=== PATIENT | male | born 1965 | race African-American/Black ===

== ENCOUNTER 2024-09-30 09:38 | Outpatient (AMB) | payer OTHER, SELFPAY ==
[2024-09-30 09:50] VITALS: BP 140/100; PULSE 81; O2SAT 95; BMI 46.4
--- NOTE | 2024-09-30 09:50 | A.OFFVIS_ITS ---
Vital Signs 09/30/24 09:50 Height 5 ft 9 in Weight 314 lb 2.539 oz BMI 46.4 BP 140/100 H Blood Pressure Location Lt brachial Position Sitting Pulse 81 Pulse Source Pulse Oximeter Pulse Oximetry (%) 95 Oxygen Delivery Method Room Air Intake Visit Reasons: omar Intake Note: pt is here as a new patient for hx of sleep apnea, last sleep study 2011, has resmed 10 with [facility]. He does feel oxygen deprived in am at times, has had cpap treatment since 2011. Roller Stainer Required: No Allergies No Known Allergies Allergy (Verified 09/30/24 10:43) Medication List - Last Reconciled 09/30/24 by Shelby Gill MD atorvastatin 20 mg PO BEDTIME losartan 25 mg PO DAILY tadalafil 10 mg PO DAILY PRN Do you need a note to return to daycare/school/sports/work: No HPI HPI omar: Details: This 59 years old gentleman is being seen for the 1st time in relation to his longstanding obstructive sleep apnea. He gives history of being overweight throughout his adult life. Back in 2011 he presented with symptoms of frequent awakening at night, snoring, and also daytime sleepiness . His body weight at that time was 250 lb. He had polysomnogram study at [facility] the report of which is reviewed. He was found to have relatively severe obstructive sleep apnea and had CPAP t itration, which showed that he required a pressure of 12 cm. He was started on CPAP therapy with fullface mask and pressure of 12 cm. He was initially being followed by the sleep medicine service at [facility], but apparently a few years later then he has continue to use the CPAP, but not being followed by any sleep physician. He had his CPAP device, changed about 3-4 years ago, to a new model, but the CPAP pressure was still kept the same, 12 cm. He claims that he still uses the CPAP regularly but wakes up in the morning feeling somewhat tired, and as if he lacks O2. He has had no regular compliance monitoring. He has come to us for CPAP management. He is hoping that he could use a nasal interface instead of fullface mask. However he also states that he is a mouth breather . In the last 2 about 12 years he has gained almost 100 lb of weight, compared to 250 in 2012 current weight is 314. He has not . 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 He remains very sedentary. He is being treated for hypertension and hyperlipidemia , and erectile dysfunction. He claims that he is nonsmoker, and uses marijuana only once in a while. He does use moderate amount of alcohol almost on a daily basis. [facility] Medical History (Updated 09/30/24 @ 13:35 by Shelby Gill MD) OMAR on CPAP Morbid exogenous obesity Social History Patient Tobacco Use Status: Never used Tobacco Review of Systems Const All systems reviewed & are unremarkable except as noted in HPI and below Denies snoring (When he is wearing the CPAP) Eyes Reports no additional complaints ENT Reports no additional complaints Card Denies chest pain, Denies irregular heart rhythm, Denies leg edema and Denies dyspnea on exertion Resp Reports no additional complaints, Denies dyspnea on exertion, Denies snoring (When he is wearing the CPAP) and Denies wheezing GI Reports no additional complaints Reports erectile dysfunction Musc Reports no additional complaints Skin/Breast Reports system reviewed and no additional complaints, except as documented Neuro Reports no additional complaints Psych Reports no additional complaints Endo Reports no additional complaints Kishor/Lymph Reports no additional complaints Aller/Immun Denies wheezing Physical Exam Vital Signs: Last Vital Signs Pulse 81 09/30/24 09:50 BP 140/100 H 09/30/24 09:50 Pulse Ox 95 09/30/24 09:50 Oxygen Delivery Method Room Air 09/30/24 09:50 BMI result Body Mass Index 46.4 This gentleman is grossly obese has a large round face, with a large neck. Const General: healthy appearing (Except for being overweight), comfortable, no acute distress, alert and awake Orientation/consciousness: patient oriented x3 HEENT Head: Yes normal to inspection General nose exam: No nasal polyps present and No nasal discharge present Face and sinus: Yes sinuses nontender Mouth: oropharynx abnormals (Oropharynx is very crowded, Mallampati scale 4) Throat: Yes posterior oropharynx normal Eyes General: appearance normal, both eyes and all related structures Neck Neck: Yes normal visual inspection, Yes no lymphadenopathy, Yes trachea midline, Yes no JVD and Yes other (Neck 18-1/2 inch) Thyroid: Thyroid normal Resp Effort & Inspection: normal respiratory effort Auscultation: clear to auscultation bilaterally, no crackles and no wheezes Cardio Palpation: normal PMI Rate: regular rate Rhythm: regular rhythm Heart sounds: no gallops and no murmurs Peripheral pulses: Peripheral pulses 2+ throughout GI Palpation (GI): Soft to palpation, nontender, No hepatosplenomegaly present and no masses Auscultation: normal bowel sounds Back/Spine/Pelvis Thoracic/Lumbar Spine: thoracic and lumbar spine normal to inspection Skin General skin exam: no rashes or lesions noted Neuro General: patient oriented x3 and no focal motor deficits Cranial nerves: Yes CN's II-XII intact bilaterally Extrem General: Yes normal to inspection, Yes no clubbing, cyanosis or edema and Yes no calf tenderness Psych Appearance: grossly normal and well kempt Speech and movement: Normal speech and movement present Results Reviewed Results Reviewed: COMPLIANCE REPORT IS OBTAINED FROM THE DME SUPPLIER HIS COMPLIANCE IS 100% AVERAGE USE IT PER NIGHT 6 HOURS 34 MINUTES. HE IS ON AUTO PAP MODE AND USING PRESSURE MAINLY 12-13 CM. THERE IS MODERATE AMOUNT OF AIR LEAK MAXIMUM 58 L/MINUTE. RESIDUAL AHI 1.7 Assessment & Plan Assessment & Plan (1) Morbid exogenous obesity: Comment: THIS GENTLEMAN HAS CHRONIC MORBID OBESITY. HE HAS GAINED LOT OF WEIGHT, PROBABLY DUE TO SEDENTARY LIFESTYLE. Code(s): E66.01 - Morbid (severe) obesity due to excess calories Category: Medical Plan: I TALKED TO HIM ABOUT THE WEIGHT. ENCOURAGED HIM TO JOIN A WEIGHT MANAGEMENT PROGRAM. HE SHOULD SEE HIS PRIMARY CARE PHYSICIAN REGULARLY. HE SHOULD HAVE COMPLETE CHEMISTRY CHECKUP . DIET SOUZA HE COULD SEE A REGULATORY AFFAIRS ANALYST, AND FOR THE TIME BEING I ADVISED HIM TO CUT OUT THE CARBOHYDRATES AND TAKE MORE OF VEGETABLES AND SALADS. (2) OMAR on CPAP: Comment: PATIENT HAS HISTORY OF OBSTRUCTIVE SLEEP APNEA DIAGNOSED IN 2012, HE HAS BEEN ON CPAP SINCE THEN. HE IS NOT BEING FOLLOWED BY ANY SLEEP SPECIALIST. HE IS NOT HAPPY WITH HIS CURRENT MASK, WHICH. IS AT LARGE FULLFACE HE WANTS TO TRY A NASAL MASK, HOWEVER I AM AFRAID THAT HE IS GOING TO HAVE LOT OF AIR LEAK THROUGH THE MOUTH. I THINK HE SHOULD GO TO FULLFACE MASK BUT A DIFFERENT MODEL, LIKE DREAM WEAR . Code(s): G47.33 - Obstructive sleep apnea (adult) (pediatric) Category: Medical Plan: ORDER FOR SUPPLIES BEING SENT TO DME ( [facility] ) PATIENT NEEDS TO BE SEEN EVERY 6 HOURS FOR FOLLOW-UP. Coding Level of Care Code New Pt Level 4 (00705) Diagnoses Morbid exogenous obesity E66.01 OMAR on CPAP G47.33
--- OUTSIDE RECORDS SUMMARY | 2024-09-30 14:05 | XMS_ITS | Clinical Summary ---
Author Organization [facility] [address] [place] [address] [place] [phone] Phone Care Team Providers Care Glass Sander Name Role Phone Bunny Tyler MD Primary Care Provider Allergies No known active allergies Medications Medication Sig Dispensed Refills Start Date End Date Status tadalafiL (CIALIS) 10 mg tablet 10 mg PO at least 30 minutes prior to anticipated sexual activity as single dose and not more than once daily 04/15/2024 Active sodium chloride (OCEAN) 0.65 % nasal spray Administer 1 spray into each nostril if needed for congestion. 15 mL 3 08/06/2024 Active losartan (COZAAR) 25 mg tablet Take 1 tablet (25 mg total) by mouth 1 (one) time each day. 90 tablet 1 08/06/2024 Active atorvastatin (LIPITOR) 20 mg tablet Take 1 tablet (20 mg total) by mouth 1 (one) time each day. 90 tablet 08/06/2024 Active polyethylene glycol (COLYTE) 240-22.72-6.72 -5.84 gram solutionIndications :Personal history of hyperplastic colon polyps Take 4,000 mL by mouth 1 (one) time for 1 dose. Drink 8 oz every 10-15 minutes until solution is gone 4000 mL 09/30/2024 09/30/2024 Active Active Problems Problem Noted Date Diagnosed Date Morbid obesity with BMI of 40.0-44.9, adult 07/06 Chronic gout involving toe without tophus 2023 Prediabetes 09/10/2021 Primary osteoarthritis of right knee 11/20/2020 Internal derangement of knee, acute, right 11/20 Elevated TSH 05/01/2020 Overview (07/22/2024): Ending repeat TSH Erectile dysfunction 04/22/2020 Achilles tendinitis 05/23/2018 Overview (07/22/2024): right Hyperlipidemia 03/27/2018 CKD (chronic kidney disease) stage 3, GFR 30-59 ml/min 03/27/2018 PAYAM on CPAP 01/04/2018 Essential hypertension 01/04/2018 Encounters Date Type Department Care Team Description 09/30/2024 1:00 PM EST Office Visit Gastroenterology - [address] [phone] Triny Sow PA Colon cancer screening (Primary Dx); Screening for colorectal cancer 09/30/2024 Telephone Gastroenterology - [address] [phone] Scooby Yepez MD 09/02/2024 Telephone Gastroenterology - [address] [place] [phone] Scooby Yepez MD 08/06/2024 11:00 AM EST Office Visit Adult Medicine [address] [phone] Bunny Tyler MD Essential hypertension (Primary Dx); Prediabetes; Mixed hyperlipidemia; PAYAM on CPAP; Nasal congestion; High serum creatine; Screening for colorectal cancer; Nocturnal polyuria; Multiple atypical skin moles from Last 3 Months Immunizations Name Administration Dates Next Due Hepatitis A-Hepatitis B Adul t (Twinrix) 18yo and older 09/20/2015,05/16/2015,05/02/2015,03/21 Influenza Quadravalent, MDCK , 0.5ml, preservative free (Flucelvax) 6mo and older 06/26/2023,06/10/2021,07/14/2019,05/23 Influenza Quadravalent, MDCK , 0.5ml, with preservative (Flucelvax) 6mo and older 08/03/2022 Influenza trivalent, 0.5mL, preservative free (Fluarix; FluLaval; Fluzone) ages 6mo and older (Afluria) 3 years and older 07/20/2016,07/02/2015 Influenza, Unspecified 08/04/2020 MMR, measles mumps and rubel la Live (Priorix; M-M-R II) 12mo and older 09/23/2013 Pfizer SARS-CoV-2 COVID-19, mRNA, LNP-S, preservative free 12/24/2020 Pneumococcal polysaccharide 23 valent (Pneumovax 23) 2yo and older 09/23/2013 Tdap Tetanus diptheria acell ular pertussis (Boostrix; Adacel) 7yo and older 03/21/2015,09/02/2013 Zoster recombinant (Shingrix ) 19yo and older 09/08/2021 Surgical History Surgery Date Site/Laterality Comments UMBILICAL HERNIA REPAIR 04/2014 PROCEDURE: LAP UMBILICAL HERNIA REPAIR Medical History Medical History Date Comments Morbid obesity with BMI of 4 0.0-44.9, adult ([facility]) 02/07/2018 DX:Morbid obesity with BMI o f 40.0-44.9, adult ([facility]) Essential hypertension 01/04/2018 DX:Essent ial hypertension Hyperlipidemia 03/27/2018 DX:Hyperlipidemi a CKD (chronic kidney disease) stage 3, GFR 30-59 ml/min ([facility]) 03/27/2018 DX:CKD (chronic kidney dise ase) stage 3, GFR 30-59 ml/min ([facility]) PAYAM on CPAP 01/04/2018 DX:PAYAM on CPAP Achilles tendinitis 05/23/2018 DX:Achilles tendinitis; COMMENT: right Colon polyp Family History Medical History Relation Name Comments Diabetes Brother Heart attack Brother Other: Heart diease Brother Other: gunshot Father Other: unknown cancer Maternal Grandfather Lymphoma Maternal Grandmother Diabetes Mother chf, ESRD No Known Problems Paternal Grandfather Dementia Paternal Grandmother Diabetes Son Colon cancer Neg Hx Relation Name Status Comments Brother Father Maternal Grandfather Maternal Grandmother Mother Paternal Grandfather Paternal Grandmother Son Social History Tobacco Use Types Packs/Day Years Used Date Smoking Tobacco: Never Smokeless Tobacco: Never Tobacco Cessation:Counseling Given: Not Answered Alcohol Use Standard Drinks/Week Comments Yes 2 (1 standard drink = 0.6 oz pur e alcohol) social Sex and Gender Information Value Date Recorded Sex Assigned at Male 07/21/2024 9:10 AM EST Gender Identity Male 07/21/2024 9:10 AM EST Sexual Orientation Straight 07/21/2024 9: 10 AM EST Job Start Date Occupation Industry Not on file Not on file Not on file Obstetrics History Last Filed Vital Signs Vital Sign Reading Time Taken Comments Blood Pressure 130/80 08/06/2024 10:51 AM EST provider will recheck Pulse 96 08/06/2024 10:51 AM EST Temperature 37 ??C (98.6 ??F) 08/06/2024 10: 51 AM EST Respiratory Rate 18 08/06/2024 10:5 1 AM EST Oxygen Saturation - - Inhaled Oxygen Concentration - - Weight 141 kg (310 lb) 09/30/2024 12:48 PM EST Height 175.3 cm (5' 9 ) 09/30/2024 12:4 8 PM EST Body Mass Index 45.78 09/30/2024 12:48 PM EST Plan of Treatment Upcoming Encounters Date Type Department Care Team (Late st Contact Info) Description 01/06/2025 11:00 AM EDT Office Visit Adult Medicine [address] [phone] Bunny Tyler MD [address] [place] [phone] Health Maintenance Due Date Last Done Comments Pneumococcal Vaccine: Pediatrics (0 to 5 Years) and At-Risk Patients (6 to 64 Years) (2 of 2 - PCV) 09/23/2014 09/23/2013 Zoster Vaccines (2 of 2) 11/03/2021 09/08/2021 RSV Immunization Patients 60+ Years Old (1 - Risk 60-74 years 1-dose series) 2024 COVID-19 Vaccine (4 - season) 2024 09/08/2021, 01/18/2021, 12/24/2020 Influenza Vaccine (#1) 2024 3, 08/03/2022, 06/10/2021, Additional history exists Colorectal Cancer Screening: Colonoscopy 10/14/2024 10/14/2019, 10/14/2019 Depression Screening 12/03/2024 12/04/2023, 12/04/19 24 Social Influencers of Health Screening 12/03/2024 12/04/2023 DTaP,Tdap,and Td Vaccines (3 - Td or Tdap) 03/21/2025 03/21/2015, 09/02/2013 Hypertension/CHF/CAD Annual BMP Blood Test 06/17/2025 06/17/2024, 06/17/2024, 03/26/2024, Additional history exists Cholesterol Screening (Lipid Panel) 03/26/2029 03/26/2024, 03/26/2024 MMR Vaccines Aged Out 09/23/2013 No longer eligi ble based on patient's age to complete this topic Hepatitis A Vaccines Aged Out 09/20/2015, 05/16/2015, 05/02/2015, Additional history exists No longer eligible based on patient's age to complete this topic Hepatitis B Vaccines Completed 09/20/2015, 05/16/2015, 05/02/2015, Additional history exists HIV Screening Completed 03/24/2018 Hepatitis C Screening Completed 03/24/2018, 018 HIB Vaccines Aged Out No longer eligi ble based on patient's age to complete this topic HPV Vaccines Aged Out No longer eligi ble based on patient's age to complete this topic IPV Vaccines Aged Out No longer eligi ble based on patient's age to complete this topic Meningococcal ACWY Vaccine Aged Out N o longer eligible based on patient's age to complete this topic RSV Immunization Patients Under 20 months Aged Out No longer eligible based on patient's age to complete this topic Varicella Vaccines Aged Out No longer eligible based on patient's age to complete this topic Procedures Procedure Name Priority Date/Time Associated Diagnosis Comments ANNUAL BMP BLOOD TEST Routine 06/17/2024 LIPID PANEL Routine 03/26/2024 DEPRESSION SCREENING Routine 12/04/2023 COLONOSCOPY Routine 10/14/2019 HEPATITIS C SCREENING Routine 03/24/2018 HIV SCREENING Routine 03/24/2018 from Last 3 Months or Most Recently Relevant to Health Maintenance Results * Annual BMP Blood Test (06/17/2024) [facility] Annual BMP Blood Test abstracted Historical Provider MD ANALI SOUZA E * Lipid panel (03/26/2024) [facility] LDL/HDL Ratio 3 0 - 4 Triglycerides 129 0 - 150 mg/dL Cholesterol 155 0 - 200 mg/dL HDL 48 40 mg/dL LDL Cholesterol 82 0 - 100 mg/dL Blood Venous blood specimen / Unknown Historical Provider LAB BLOOD ORDERAB LES * Depression Screening (12/04/2023) [facility] Depression Screening abstracted Historical Provider MD ANALI SOUZA * Colonoscopy (10/14/2019) [facility] Colonoscopy no interpretation , abstracted Anatomical Region Laterality Modality Other Historical Provider MD ANALI SOUZA * HIV Screening (03/24/2018) [facility] HIV Screening abstracted Historical Provider MD ANALI SOUZA * Hepatitis C Screening (03/24/2018) [facility] Hepatitis C Screening abstracted Historical Provider MD ANALI Luna from Last 3 Months or Most Recently Relevant to Health Maintenance Care Teams Glass Sander Relationship Specialty Start Date End Date Bunny Tyler MD [address] [place] [address] PCP - General Internal Medicine 05/31/22
--- OUTSIDE RECORDS SUMMARY | 2024-09-30 14:06 | XMS_ITS | Encounter Summary ---
Author Organization [facility] [place] [address] Care Team Providers Care Junior Mechanical Engineer Name Role Phone Bunny Tyler MD Primary Care Provider Encounter Details Date Type Department Care Team ([facility] st Contact Info) Description 09/02/2024 Telephone Gastroenterology - [address] [facility] [address] [place] [phone] Scooby Yepez MD [address] [facility] [address] [place] [phone] Social History Tobacco Use Types Packs/Day Years Used Date Smoking Tobacco: Never Smokeless Tobacco: Never Alcohol Use Standard Drinks/Week Comments Yes 2 (1 standard drink = 0.6 oz pur e alcohol) Sex and Gender Information Value Date Recorded Sex Assigned at Male 07/21/2024 9:10 AM EST Gender Identity Male 07/21/2024 9:10 AM EST Sexual Orientation Straight 07/21/2024 9: 10 AM EST Job Start Date Occupation Industry Not on file Not on file Not on file documented as of this encounter Progress Notes * Ruby Escamilla - 09/10/2024 3:59 PM EST PT SCHEDULED FOR OFFICE VISIT. * Ruby Escamilla - 09/02/2024 2:55 PM EST NEW INTERNAL REFERRAL documented in this encounter Plan of Treatment Upcoming Encounters Date Type Department Care Team (Late st Contact Info) Description 01/06/2025 11:00 AM EDT Office Visit Adult Medicine [address] [phone] Bunny Tyler MD [address] [place] [phone] documented as of this encounter Visit Diagnoses Not on filedocumented in this encounter Care Teams Junior Mechanical Engineer Relationship Specialty Start Date End Date Bunny Tyler MD [address] [place] [address] PCP - General Internal Medicine 05/31/22 documented as of this encounter
== END 2024-09-30 10:44 | disposition home or self-care (01) ==
PROVIDERS: PCP Internal Medicine; Visit Provider Internal Medicine
DX: E66.01 Morbid (severe) obesity due to excess calories (principal); G47.33 Obstructive sleep apnea (adult) (pediatric)
CPT/HCPCS: 99204

== ENCOUNTER → 2024-09-30 09:38 | Outpatient (BNVA) | payer MEDICARE, SELFPAY | PROVIDERS: PCP Internal Medicine; Visit Provider Internal Medicine | DX: G47.33 Obstructive sleep apnea (adult) (pediatric) (principal); E66.01 Morbid (severe) obesity due to excess calories; Z68.42 Body mass index [BMI] 45.0-49.9, adult | CPT/HCPCS: 99202 ==